=== PATIENT | male | born 1975 | race Caucasian/White ===

== ENCOUNTER 2019-12-26 13:41 | Emergency (ER) | payer OTHER ==
[~2019-12-26] VITALS: Ht 177.8 cm; Wt 103.0 kg
[2019-12-26] MEDS ORDERED: CEPHALEXIN500 M1 PO (14:26)
== END 2019-12-26 15:44 | disposition home or self-care (01) ==
LOC: ED 13:41
DX: L02.211 Cutaneous abscess of abdominal wall (principal); Z90.49 Acquired absence of other specified parts of digestive tract